=== PATIENT | male | born 1950 | race Caucasian/White ===

== ENCOUNTER 2017-05-17 09:17 | Inpatient (IN) ==
[2017-05-17 09:42] VITALS: BMI 29.9
--- NOTE | 2017-05-17 10:42 | Anesthesia Preoperative Report ---
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 Proposed Procedure: RObotic hemicolectomy NPO Since Date: 05/16/17 NPO Since Time: 23:00 Allergies/Adverse Reactions: Allergies Allergy/AdvReac Type Severity Reaction Status Date / Time bee venom protein (honey bee) Allergy Intermediate Swelling Verified 05/17/17 09 :48 Penicillins Allergy Unknown Verified 05/17/17 09:48 - Vital Signs Vital Signs: Temperature 97.9 F 05/17/17 09:30 Pulse Rate 109 H 05/17/17 09:52 Respiratory Rate 16 05/17/17 09:30 Blood Pressure 146/100 H 05/17/17 09:30 Pulse Oximetry 97 05/17/17 09:30 Height and Weight: Height 5 ft 11 in Weight 97.3 kg Body Mass Index 29.9 - Medications Inpatient Medications: Current Medications Alvimopan (Entereg) 12 mg PO O ONE Stop: 05/17/17 16:03 Last Admin: 05/17/17 10:10 Dose: 12 mg Ciprofloxacin Lactate (Cipro 400 Mg Premix) 400 mg in 200 mls @ 200 mls/hr IV PREOP HUSSAIN Stop: 05/17/17 23:00 Lactated Ringer's (Lactated Ringers) 1,000 mls @ 50 mls/hr IV .Q20H HUSSAIN Last Admin: 05/17/17 10:12 Dose: 50 mls/hr Metronidazole/Sodium Chloride (Flagyl Iv Premix) 500 mg in 100 mls @ 100 mls/ hr IV PREOP HUSSAIN Isopropyl Alcohol (Nozin Nasal Swab) 3 each MELODIE PREOP ONE Stop: 05/17/17 16:03 Last Admin: 05/17/17 10:09 Dose: 3 each Lidocaine HCl (Xylocaine-Mpf 1% Vial) 2 mg ID O ONE Stop: 05/17/17 16:12 Last Admin: 05/17/17 10:13 Dose: Not Given Home Medications: Home Medications Medication Instructions Recorded Confirmed Type Cholecalciferol (Vitamin D3) 2,000 unit PO DAILY #0 09/06/14 05/16/17 History [Vitamin D3] [place]-3/Dha/Epa/Fish Oil [Fish Oil 2,000 mg PO BID #0 09/06/14 05/16/[address] 500 mg Softgel] Simvastatin 10 mg PO HS #30 09/06/14 05/17/17 History Is Patient on Beta Michael?: No - Medical History Respiratory: DENIES: Asthma, Sleep Apnea Cardiovascular: DENIES: Angina Gastrointestional: DENIES: Gastroesophageal Reflux Disease Other History: DENIES: Anesthesia Reactions - Surgical History GI Surgery/Treatments: Reports: Appendectomy (AGE 8), Colonoscopy Musculoskeletal Surgery/Tx: Reports: Carpal Tunnel Release (RIGHT-ABOUT ) , Knee Arthroscopy (RIGHT ABOUT ) Reproductive Surgery/Treatment: Reports: Vasectomy Anesthesia Reactions: None Hx Family Anesthesia Reaction: No History of Motion Sickness: No - Social History Smoking Status: Never smoker Hx Chewing Tobacco Use: No Second Hand Exposure: No Substance Use Type: does not use Alcohol Intake: current Alcohol Intake Frequency: holidays/special occasions only - Pertinent Findings EKG: Sinus Dysrhythmia - Physical Exam Respiratory Exam: Present: lungs clear Cardiovascular Exam: Present: regular rate and rhythm - Airway Assessment Mallampati Score: II TMD: 3 Fingerbreadths Neck Extension: good Overall Assessment: no airway concerns - ASA ASA Score: 2 - Plan Anesthesia: General Inhalation Gases - Discussion Discussion: Discussed risks/options/alternatives of anesthesia and questions answered. Patient consents. Nursing pain assessment noted. Present for Discussion: spouse, family member Attestation Statement: Prior to the delivery of any anesthetic medication, I examined the patient, developed the plan, obtained the patient's consent and discussed the risk and benefits of the procedure with the patient/guardian. - Additional Information Seen by Anesthesia: Yes
[2017-05-17] MEDS ORDERED: MIDAZOLAM 2mg/2ml INJECTION ONE (10:57)
[2017-05-17] MEDS ORDERED: FentaNYL 250 MCG/5 ML INJECTION ONE (10:57)
[2017-05-17] MEDS ORDERED: ROCURONIUM 50 MG/5 ML INJECTION IVP ONE (10:59)
[2017-05-17] MEDS ORDERED: PROPOFOL 20 ML ONE (10:59)
[2017-05-17] MEDS ORDERED: INDOCYANINE GREEN 25mg INJECTION ONE (11:05)
[2017-05-17] MEDS ORDERED: LIDOCAINE 1% (10mg/ml) 30ml SDV INJ ONE (11:08)
[2017-05-17] MEDS ORDERED: LIDO 1% 30ml/BUPIV 0.25%-EPI 1:200T 30ml MIXTURE (60ml total) ID ONE (11:23)
--- NOTE | 2017-05-17 12:48 | Event Note ---
1135- Pt to OR, connected to monitors. Pt noted to be in AFib with PVC, rate of 98-120. Pt denies SOB, chest pain, cardiac related symptoms. Stat EKG ordered before proceeding with induction. Versed 2mg IV given for relaxation at 1145. EKG obtained at ~1155, reads Afib with anteroseptal HI. Jacqueline CALDERON called and consulted regarding new onset Afib and discussed risks vs benefits of proceeding with surgery. Dr Roach, Jacqueline, and myself discuss current situation and agree that the risk is higher to proceed. Surgery will be postponed and pt will have a more thorough cardiac consult. Pt returns to Phase 2 at 1220, and discussed with family the reasons for delay of surgery. Family and pt agreeable with plan for cardiac evaluation and delay of surgery.
--- NOTE | 2017-05-17 14:23 | XRay Report ---
Indication: a fib PROCEDURE: XR chest 1V: Encounter: Initial Comparison: None FINDINGS: The lungs are clear. There is no abnormal airspace opacity, pleural effusion or pneumothorax identified. The heart size, pulmonary vasculature and mediastinum are within normal limits. No significant skeletal abnormality is seen. IMPRESSION: No acute cardiopulmonary abnormality. .
--- NOTE | 2017-05-17 14:43 | Cardiology History & Physical ---
History of Present Illness Chief complaint: atrial fibrillation HPI: Jason is a 66 year old male patient of Dr. Roach with a history of HLD, Insomnia, Nephrolithiasis and Adenomatous colon polyp for which he was scheduled to undergo elective hemicolectomy today. Once in the OR suite he was found to be in Atrial fibrillation with RVR, unknown onset and was asymptomatic. Dr. Chopra was consulted for further evaluation and the procedure was cancelled. Jason is seen in Surgery care, and then again in CCU. He denies any chest pain, pressure, tightness, palpitations, skipped beats or racing heart beats. He denies dyspnea, dizziness, lightheadedness or fatigue. Review of Systems - Constitutional Constitutional: Absent: chills, fatigue, fever(s) - EENMT Eyes: Absent: change in vision Balance: Absent: vertigo Mouth/Throat: Absent: sore throat - Cardiovascular Cardiovascular: Absent: chest pain, palpitations, syncope, dyspnea on exertion Rhythm: Absent: abnormal rhythm Vascular: Absent: pedal edema - Respiratory Respiratory: Absent: cough, dyspnea, dyspnea on exertion - Gastrointestinal Gastrointestinal: Absent: abdominal pain, diarrhea, nausea, vomiting - Genitourinary Genitourinary: Absent: dysuria - Integumentary/Breasts Integumentary: Absent: rash - Neurological Neurological: Absent: dizziness - Endocrine Endocrine: Present: palpitations PFSH Patient Stated Medical History Hearing Loss Yes: bilat hearing aides Other HEENT Yes: DENT[employer]PLANT[employer] 2013 Angina No Asthma No Sleep Apnea No Gastroesophageal Reflux No Disease Hx Kidney Stones Yes: S-2008 Anesthesia Reactions No Clinic Medical History (Last Updated 05/11/17 @ 20:29 by Jos Roach MD) Adenomatous colon polyp (Acute Medical) * tubulovillous adenoma with low grade dysplasia of the hepatic flexure - biopsied 04/17/17. * tubular adenoma with low grade dysplasia x5 removed 04/17/17 Hypercholesterolemia (Chronic Medical) Insomnia (Chronic Medical) Nephrolithiasis (Chronic Medical) Surgical History: * Colonoscopy with polypectomy x5 and piecemeal biopsy of a 4 cm hepatic flexure mass - 04/17/[address] Roach in [place], [place]. Pathology revealed the hepatic flexure mass was a tubulovillous adenoma. He had 4 other tubular adenomas with low grade dysplasia and a hyperplastic polyp. * Right Carpel tunnel release - 05/25/[address] Coco Hughes at [facility] in [place], [place]. * Right Meniscus repair - 2009 Dr. Jiménez in [place], [place]. * Colonoscopy - [address] David Campo in [place], [place]. Reportedly normal. * Open Appendectomy - 1959 in [place], [place]. Family History: Family History (Last Reviewed 05/02/17 @ 15:27 by Delaney Hassan) Father , 87 - CVA CVA (cerebral vascular accident) Alzheimer's dementia Mother , 97 CVA (cerebral vascular accident) - Social History Smoking status: Never smoker Substance use type: does not use Alcohol intake frequency: holidays/special occasions only Housing: house Household members: spouse Current occupational status: retired Does patient use chewing tobacco?: No Current residence: Apartment/Private Home Medications Home Medications Medication Instructions Recorded Confirmed Type Cholecalciferol (Vitamin D3) 2,000 unit PO DAILY #0 09/06/14 05/16/17 History [Vitamin D3] [place]-3/Dha/Epa/Fish Oil [Fish Oil 2,000 mg PO BID #0 09/06/14 05/16/17 History 500 mg Softgel] Simvastatin 10 mg PO HS #30 09/06/14 05/17/17 History Allergies Allergy/AdvReac Type Severity Reaction Status Date / Time bee venom protein (honey bee) Allergy Intermediate Swelling Verified 05/17/17 09 :48 Penicillins Allergy Unknown Verified 05/17/17 09:48 Exam Vital signs: Temperature 97.8 F 05/17/17 12:20 Pulse Rate 98 05/17/17 12:45 Respiratory Rate 18 05/17/17 12:45 Blood Pressure 136/91 H 05/17/17 12:45 Pulse Oximetry 97 05/17/17 12:45 - Constitutional no acute distress, well nourished, cooperative - Routine HEENT Exam Head: Present: normocephalic ENT: Present: mucous membranes moist - Routine Neck Exam Absent: JVD, carotid bruit - Routine Chest/Breast/Axilla Exam Chest wall: Absent: tenderness - Routine Respiratory Exam Present: CTA bilaterally. Absent: rales, wheezes - Routine Cardiovascular Exam Present: no murmur, irregular rhythm - Routine Abdominal Exam Present: soft, normoactive bowel sounds - Routine Extremities Exam Present: no edema - Routine Skin Exam Present: intact, dry, warm - Routine Neurological Exam Present: alert, oriented X3 - Routine Psychiatric Exam Present: normal affect, normal thought process Results 05/19/17 05:17 05/19/17 05:17 Cardiac Enzymes 05/17/17 Range/Units 14:13 AST 21 (17-59) U/L CBC 05/17/17 Range/Units 14:13 WBC 7.5 (4.5-11.0) T/MM3 RBC 5.73 (4.50-5.90) M/MM3 Hgb 15.5 (13.5-17.5) GM/DL Hct 46.6 (41-53) % Plt Count 196 (130-400) T/MM3 Comprehensive Metabolic Panel 05/17/17 Range/Units 14:13 Sodium 142 (134-144) MEQ/L Potassium 4.3 (3.6-5) MEQ/L Chloride 106 (98-107) MEQ/L Carbon Dioxide 25 (22-30) MEQ/L BUN 14.0 (9-20) MG/DL Creatinine 0.9 (0.8-1.5) MG/DL Glucose 99 (75-110) MG/DL Calcium 9.2 (8.4-10.2) MG/DL AST 21 (17-59) U/L ALT 26 (21-72) U/L Alkaline Phosphatase 63 (38-126) U/L Total Protein 7.9 (6.3-8.2) G/DL Albumin 4.4 (3.5-5.0) G/DL Intake and Output 05/16/17 05/17/17 05/17/17 22:59 06:59 14:59 Intake Total 800 / 800 Output Total 250 / 250 Balance 550 / 550 Intake: IV 800 / 800 Ciprofloxacin Ivpb 400 mg In 200 / 200 200 ml @ 200 mls/hr IV PREOP HUSSAIN Rx#:[id number] Lr 1,000 ml @ 50 mls/hr IV . 500 / 500 Q20H HUSSAIN Rx#:[id number] MetroNIDAZOLE PB 500 mg In 100 100 / 100 ml @ 100 mls/hr IV PREOP HUSSAIN Rx #:[id number] Output: Urine 250 / 250 Other: Urine Appearance Clear Urine Color Yellow Weight 214 lb 8.156 oz Patient Weight 05/18/17 06:59 Weight 214 lb 8.156 oz - Imaging and Cardiology Echo: pending Imaging & Cardiology Narrative: Date of Exam: 05/17/17 Ordering Provider: Jacqueline Alonso APRN Type of Exam(s): XR chest 1V Reason for Exam(s): a fib Indication: a fib PROCEDURE: XR chest 1V: Encounter: Initial Comparison: None FINDINGS: The lungs are clear. There is no abnormal airspace opacity, pleural effusion or pneumothorax identified. The heart size, pulmonary vasculature and mediastinum are within normal limits. No significant skeletal abnormality is seen. IMPRESSION: No acute cardiopulmonary abnormality. 05/17/17 14:45 - EKG Interpretation EKG shows: atrial fibrillation EKG interpretations - EKG EKG shows: atrial fibrillation Hospital Course This is a general summary of the patient's hospital course. For more details refer to the complete medical record. Time spent with patient: 25 - 35 minutes Resuscitation Status: Full Code Assessment and Plan - Attestation Attestation Narrative: 05/23/17 07:50 Recommendation After examining the patient I agree with the above assessment. I am involved in the formulation of the patient's plan of care. - Assessment and Plan (1) Atrial fibrillation with RVR Status: Acute Asymptomatic, unknown onset. - 2D echocardiogram - Chest x ray - TSH and Mag, CBC, CMP, Troponin - Cardiac telemetry - EKG PRN rhythm change - Metoprolol 25mg po BID for rate control - Eliquis 5mg po BID for stroke prevention - Will plan outpatient stress test (2) Adenomatous colon polyp Status: Acute (3) Mixed hyperlipidemia Status: Chronic (4) Nephrolithiasis Status: Chronic - Assessment and Plan Asymptomatic, unknown onset. - 2D echocardiogram - Chest x ray - TSH and Mag, CBC, CMP, Troponin - Cardiac telemetry - EKG PRN rhythm change - Metoprolol 25mg po BID for rate control - Eliquis 5mg po BID for stroke prevention - Will plan outpatient stress test
[2017-05-17] MEDS: APIXABAN 5 MG TABLET PO SCH ×3 (15:12→21:14)
[2017-05-17] MEDS ORDERED: ALVIMOPAN 12 MG CAPSULE PO ONE (16:02)
[2017-05-17] MEDS ORDERED: NOZIN NASAL SWAB NAS ONE (16:02)
[2017-05-17] MEDS ORDERED: CIPROFLOXACIN IVPB 400 MG/200 ML BAG IV SCH (16:04)
[2017-05-17] MEDS ORDERED: LIDOCAINE 1% (10mg/ml) 2mL INJ PF SDV ID ONE (16:11)
[2017-05-17] MEDS ORDERED: MetroNIDAZOLE PB 500 MG/100 ML BAG IV SCH (16:15)
[2017-05-17] MEDS ORDERED: LR 1,000 ML IV SCH (16:15)
--- NOTE | 2017-05-17 17:47 | Progress Note ---
DATE OF VISIT 05/17/2017 REASON FOR VISIT Discuss clinical situation given new onset of atrial fibrillation. KEANU Gomez had been seen in preop and was doing well. He was ready for robotic right hemicolectomy. When he was transferred back to the operating room and connected to the monitors in the OR it was noted that he had some evidence of atrial fibrillation. This was confirmed with a 12-lead EKG. Anesthesia had contacted Dr. Chopra's nurse practitioner, Jacqueline Alonso. She came by to evaluate the patient and felt that the risk of proceeding with operation would be the potential for conversion to sinus rhythm during the operation with medications administered that may lead to dislodgement of an atrial clot and potential stroke. OBJECTIVE The patient was awake and alert and was in no acute distress. His cardiac has rhythmed into atrial fibrillation on his 12-lead EKG. IMPRESSION 1. New-onset atrial fibrillation. 2. Adenomatous colon polyp of the hepatic flexure that was not removed via the endoscopy. This is a low risk to him. PLAN 1. After discussion with the cardiology team and the patient I did feel that the best course of action was cancelling today's procedure because of the potential unknown risk as serious as stroke. 3. Appreciate Cardiology consult. 4. I will transfer care of the patient to Dr. Pillai since he has agreed to become the attending physician since surgery is cancelled. 20 minutes of [id number] time were spent with the patient and his family with 15 minutes being used for counseling and coordination of care. ROGELIO
[2017-05-17] MEDS: SIMVASTATIN 10 MG TABLET PO SCH (20:28)
[2017-05-17] MEDS: TRAZODONE 50 MG TABLET PO SCH (20:28)
[2017-05-17] MEDS ORDERED: NON-FORMULARY MEDICATION 1 EACH EACH (Omega-3/Dha/Epa/Fish Oil [Fish Oil Dr 500 Mg Softgel PO SCH (21:00)
[2017-05-18] MEDS ORDERED: NON-FORMULARY MEDICATION 1 EACH EACH (Cholecalciferol (Vitamin D3) [Vitamin D3] 2,000 UNIT PO SCH (09:00)
[2017-05-18] MEDS: SOTALOL 80 MG TABLET PO SCH ×2 (09:32→17:45)
[2017-05-18] MEDS: OMEGA-3 ACID ESTERS 1 GM CAPSULE PO SCH (09:33)
[2017-05-18] MEDS: APIXABAN 5 MG TABLET PO SCH ×2 (09:33→22:10)
--- NOTE | 2017-05-18 11:13 | Cardiology Progress Note ---
<Jacqueline Alonso - Last Filed: 05/18/17 16:22> Subjective Principal diagnosis: atrial fibrillation Interval history: Jason is seen in follow up for new onset atrial fibrillation. He converted to Sr this morning. He denies any chest pain, palpitations, dyspnea, dizziness, lightheadedness or fatigue. Exam Vital signs: Temperature 98.3 F 05/18/17 07:00 Pulse Rate 64 05/18/17 09:32 Respiratory Rate 18 05/18/17 07:00 Blood Pressure 102/67 05/18/17 07:00 Pulse Oximetry 97 05/18/17 07:00 - Constitutional no acute distress, well nourished, cooperative - Routine HEENT Exam Head: Present: normocephalic - Routine Neck Exam Absent: JVD, carotid bruit - Routine Chest/Breast/Axilla Exam Chest wall: Absent: tenderness - Routine Respiratory Exam Present: CTA bilaterally. Absent: rales, wheezes - Routine Cardiovascular Exam Present: RRR, no murmur - Routine Abdominal Exam Present: soft, normoactive bowel sounds - Routine Extremities Exam Present: no edema - Routine Skin Exam Present: intact, dry, warm - Routine Neurological Exam Present: alert, oriented X3 - Routine Psychiatric Exam Present: normal affect, normal thought process - Additional findings Additional findings: Apixaban (Eliquis) 5 mg PO BID [facility] Last Admin: 05/18/17 09:33 Dose: 5 mg Cholecalciferol (Vit. D-3) 2,000 unit PO DAILY [facility] Last Admin: 05/18/17 09:32 Dose: 2,000 unit Jheav-2-Kcsg Ethyl Esters (Lovaza) 2 gm PO DAILY [facility] Last Admin: 05/18/17 09:33 Dose: 2 gm Potassium Citrate (Urocit-K) 10 meq PO BIDWM [facility] Last Admin: 05/18/17 09:32 Dose: 10 meq Simvastatin (Zocor) 10 mg PO HS [facility] Last Admin: 05/17/17 20:28 Dose: 10 mg Sotalol HCl (Betapace) 40 mg PO ACBID [facility] Last Admin: 05/18/17 09:32 Dose: 40 mg Trazodone HCl (Desyrel) 50 mg PO HS [facility] Last Admin: 05/17/17 20:28 Dose: 50 mg Results 05/18/17 06:50 05/18/17 06:50 Cardiac Enzymes 05/17/17 Range/Units 14:13 AST 21 (17-59) U/L Troponin I < 0.012 (0-0.12) ng/ml CBC 05/17/17 Range/Units 14:13 WBC 7.5 (4.5-11.0) T/MM3 RBC 5.73 (4.50-5.90) M/MM3 Hgb 15.5 (13.5-17.5) GM/DL Hct 46.6 (41-53) % Plt Count 196 (130-400) T/MM3 Comprehensive Metabolic Panel 05/17/17 Range/Units 14:13 Sodium 142 (134-144) MEQ/L Potassium 4.3 (3.6-5) MEQ/L Chloride 106 (98-107) MEQ/L Carbon Dioxide 25 (22-30) MEQ/L BUN 14.0 (9-20) MG/DL Creatinine 0.9 (0.8-1.5) MG/DL Glucose 99 (75-110) MG/DL Calcium 9.2 (8.4-10.2) MG/DL AST 21 (17-59) U/L ALT 26 (21-72) U/L Alkaline Phosphatase 63 (38-126) U/L Total Protein 7.9 (6.3-8.2) G/DL Albumin 4.4 (3.5-5.0) G/DL Intake and Output 05/17/17 05/18/17 05/18/17 22:59 06:59 14:59 Intake Total 440 / 440 240 / 240 Balance 440 / 440 240 / 240 Intake: Oral 440 / 440 240 / 240 Other: Urine Odor Normal # Voids 1 1 Weight 214 lb 15.211 oz 213 lb 13.574 oz Patient Weight 05/19/17 06:59 Weight 213 lb 13.574 oz - Imaging and Cardiology Imaging & Cardiology Narrative: Date of Exam: 05/17/17 Ordering Provider: Jacqueline Alonso APRN Type of Exam(s): XR chest 1V Reason for Exam(s): a fib Indication: a fib PROCEDURE: XR chest 1V: Encounter: Initial Comparison: None FINDINGS: The lungs are clear. There is no abnormal airspace opacity, pleural effusion or pneumothorax identified. The heart size, pulmonary vasculature and mediastinum are within normal limits. No significant skeletal abnormality is seen. IMPRESSION: No acute cardiopulmonary abnormality. 05/18/17 11:12 Assessment and Plan - Assessment and Plan (1) Atrial fibrillation with RVR Status: Acute (2) Adenomatous colon polyp Status: Acute (3) Mixed hyperlipidemia Status: Chronic (4) Nephrolithiasis Status: Chronic - Assessment and Plan 05/17/17 Asymptomatic, unknown onset. - 2D echocardiogram - Chest x ray - TSH and Mag, CBC, CMP, Troponin - Cardiac telemetry - EKG PRN rhythm change - Metoprolol 25mg po BID for rate control - Eliquis 5mg po BID for stroke prevention - Will plan outpatient stress test 05/18/17 Converted to SR this am. - Change Metoprolol to Sotalol 40mg BID for antiarrhythmic therapy - Monitor cardiac telemetry. - EKG in AM - Monitor renal and electrolytes Hospital Course Summary Disclaimer: The visit summary below is not to be considered part of the above Progress Note. <Kevin Chopra - Last Filed: 05/23/17 07:55> Exam Vital signs: Temperature 98.5 F 05/19/17 12:27 Pulse Rate 57 L 05/19/17 14:23 Respiratory Rate 16 05/19/17 14:23 Blood Pressure 130/69 05/19/17 14:23 Pulse Oximetry 98 05/19/17 14:23 Results 05/19/17 05:17 05/19/17 05:17 Assessment and Plan - Assessment and Plan (1) Atrial fibrillation with RVR Status: Acute (2) Adenomatous colon polyp Status: Acute (3) Mixed hyperlipidemia Status: Chronic (4) Nephrolithiasis Status: Chronic - Attestation Attestation Narrative: 05/23/17 07:55 Recommendation After examining the patient I agree with the above assessment. I am involved in the formulation of the patient's plan of care. Hospital Course Summary Disclaimer: The visit summary below is not to be considered part of the above Progress Note.
--- NOTE | 2017-05-18 17:38 | Progress Note ---
REASON FOR VISIT Discuss surgical plan. SUBJECTIVE Jason is doing well. Jacqueline Rebolledo APRN, with Cardiology had informed me that Jason had converted to a normal sinus rhythm this morning and was being switched from metoprolol to sotalol. He has been doing well. He has no complaints today. IMPRESSION 1. New-onset atrial fibrillation - now converted to normal sinus rhythm. 2. Colon polyp at the hepatic flexure - unresectable by endoscopic techniques. PLAN 1. After discussion with Cardiology I do feel that Jason should have an outpatient stress test performed prior to proceeding back to the operating room. 2. Assuming that cardiac workup is completed and negative I think he would be ready for another attempt at right hemicolectomy on 06/07/2017. PATIENT EDUCATION I did have a 10-minute conversation with Jason and his about the clinical situation. They had some questions about the plan for cardiac workup and the time frame of surgical intervention. I did explain the situation and the tentative plan. Their questions were answered to their satisfaction. 10 minutes of [id number] time was spent with the patient with 9 minutes being used for counseling and coordination of care. ROGELIO
--- NOTE | 2017-05-18 19:31 | Echocardiogram ---
DATE OF PROCEDURE May 17, 2017. This is a two-dimensional echo with spectral Doppler, color-flow and M-mode. It was obtained in a patient with atrial fibrillation. Left atrial dimension is normal. Left ventricular end-diastolic dimension is normal. Left ventricular wall thickness is increased. LV systolic function is normal with ejection fraction of 55%. Right atrium is normal. Right ventricle is normal. Aortic root dimension is normal. Mitral valve is morphologically normal with mild mitral regurgitation. Aortic valve appears to be normal. Tricuspid valve shows mild tricuspid regurgitation with normal estimated pulmonary artery systolic pressure of 28. Pulmonary valve shows mild pulmonary insufficiency. There is no pericardial effusion. IMPRESSION 1. Normal LV systolic function with ejection fraction of 55%. 2. Concentric left ventricular hypertrophy. 3. Mild mitral regurgitation. 4. Mild tricuspid regurgitation with normal estimated pulmonary artery systolic pressure of 28. Pulmonary valve shows mild pulmonary insufficiency. MTDD
[2017-05-18] MEDS: SIMVASTATIN 10 MG TABLET PO SCH (22:10)
[2017-05-18] MEDS: TRAZODONE 50 MG TABLET PO SCH (22:10)
[2017-05-19] MEDS: SOTALOL 80 MG TABLET PO SCH ×2 (06:24→08:48)
[2017-05-19] MEDS: APIXABAN 5 MG TABLET PO SCH (08:47)
[2017-05-19] MEDS: OMEGA-3 ACID ESTERS 1 GM CAPSULE PO SCH ×2 (09:12→10:16)
[2017-05-19 12:28] VITALS: TEMP 98.5
[2017-05-19 14:24] VITALS: BP 130/69; PULSE 57; RESP 16; O2SAT 98
--- NOTE | 2017-05-19 15:22 | Discharge Summary ---
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 Roach with a history of HLD, Insomnia, Nephrolithiasis and Adenomatous colon polyp for which he was scheduled to undergo elective hemicolectomy today. Once in the OR suite he was found to be in Atrial fibrillation with RVR, unknown onset and was asymptomatic. Dr. Chopra was consulted for further evaluation and the procedure was cancelled. Jason is seen in Surgery care, and then again in CCU. He denies any chest pain, pressure, tightness, palpitations, skipped beats or racing heart beats. He denies dyspnea, dizziness, lightheadedness or fatigue. Hospital Course This is a general summary of the patient's hospital course. For more details refer to the complete medical record. Hospital course: 05/17/17 Asymptomatic, unknown onset. - 2D echocardiogram - Chest x ray - TSH and Mag, CBC, CMP, Troponin - Cardiac telemetry - EKG PRN rhythm change - Metoprolol 25mg po BID for rate control - Eliquis 5mg po BID for stroke prevention - Will plan outpatient stress test 05/18/17 Converted to SR this am. - Change Metoprolol to Sotalol 40mg BID for antiarrhythmic therapy - Monitor cardiac telemetry. - EKG in AM - Monitor renal and electrolytes Time spent with patient: 25 - 35 minutes Resuscitation Status: Full Code Exam Vital signs: Temperature 98.5 F 05/19/17 12:27 Pulse Rate 57 L 05/19/17 14:23 Respiratory Rate 16 05/19/17 14:23 Blood Pressure 130/69 05/19/17 14:23 Pulse Oximetry 98 05/19/17 14:23 - Constitutional no acute distress, well nourished, cooperative - Routine HEENT Exam Head: Present: normocephalic ENT: Present: mucous membranes moist - Routine Neck Exam Absent: JVD, carotid bruit - Routine Chest/Breast/Axilla Exam Chest wall: Absent: tenderness - Routine Respiratory Exam Present: CTA bilaterally. Absent: rales, wheezes - Routine Cardiovascular Exam Present: RRR, no murmur - Routine Abdominal Exam Present: soft, normoactive bowel sounds - Routine Extremities Exam Present: no edema - Routine Skin Exam Present: intact, dry, warm - Routine Neurological Exam Present: alert, oriented X3 - Routine Psychiatric Exam Present: normal affect, normal thought process Results 05/19/17 05:17 05/19/17 05:17 CBC 05/19/17 Range/Units 05:17 WBC 6.9 (4.5-11.0) T/MM3 RBC 5.24 (4.50-5.90) M/MM3 Hgb 14.6 (13.5-17.5) GM/DL Hct 43.0 (41-53) % Plt Count 182 (130-400) T/MM3 Comprehensive Metabolic Panel 05/19/17 Range/Units 05:17 Sodium 141 (134-144) MEQ/L Potassium 4.2 (3.6-5) MEQ/L Chloride 107 (98-107) MEQ/L Carbon Dioxide 26 (22-30) MEQ/L BUN 25.0 H (9-20) MG/DL Creatinine 1.0 (0.8-1.5) MG/DL Glucose 94 (75-110) MG/DL Calcium 9.1 (8.4-10.2) MG/DL Intake and Output 05/19/17 05/19/17 05/19/17 06:59 14:59 22:59 Intake Total 100 / 100 840 / 840 Balance 100 / 100 840 / 840 Intake: Oral 100 / 100 840 / 840 Other: # Voids 3 Weight 213 lb 6.519 oz Patient Weight 05/20/17 06:59 Weight 213 lb 6.519 oz - Imaging and Cardiology Echo: report reviewed EKG results: image reviewed Imaging & Cardiology Narrative: Date of Exam: 05/17/17 Type of Exam(s): US echo doppler complete DATE OF PROCEDURE May 17, 2017. This is a two-dimensional echo with spectral Doppler, color-flow and M-mode. It was obtained in a patient with atrial fibrillation. Left atrial dimension is normal. Left ventricular end-diastolic dimension is normal. Left ventricular wall thickness is increased. LV systolic function is normal with ejection fraction of 55%. Right atrium is normal. Right ventricle is normal. Aortic root dimension is normal. Mitral valve is morphologically normal with mild mitral regurgitation. Aortic valve appears to be normal. Tricuspid valve shows mild tricuspid regurgitation with normal estimated pulmonary artery systolic pressure of 28. Pulmonary valve shows mild pulmonary insufficiency. There is no pericardial effusion. IMPRESSION 1. Normal LV systolic function with ejection fraction of 55%. 2. Concentric left ventricular hypertrophy. 3. Mild mitral regurgitation. 4. Mild tricuspid regurgitation with normal estimated pulmonary artery systolic pressure of 28. Pulmonary valve shows mild pulmonary insufficiency. 05/19/17 15:19 Discharge Plan - Med Rec/Dispo Referrals/Follow Up: Kevin Chopra MD [Physician] - 05/31/17 9:10 am [facility] Instructions: A-fib (Atrial Fibrillation) (DC) Prescriptions: New Sotalol [Betapace] 40 mg PO ACBID #60 tab Apixaban [Eliquis] 5 mg PO BID #60 tab Continue Simvastatin 10 mg PO HS #30 Cholecalciferol (Vitamin D3) [Vitamin D3] 2,000 unit PO DAILY #0 Eldred-3/Dha/Epa/Fish Oil [Fish Oil Dr 500 mg Softgel] 2,000 mg PO BID #0 potassium citrate ER 10 mEq (1,080 mg) tablet,extended release 10 meq PO BID #60 tab trazodone 50 mg tablet 50 mg PO HS #30 tab - Disposition 01 Discharged Home, Self-Care - Dismissal Complete Discharge Instructions are:: Complete <Kevin Chopra - Last Filed: 05/23/17 08:14> Discharge Information Date of admission: 05/18/17 11:12 Attending Physician: Kevin Chopra MD Primary care physician: David Campo MD Consults: 05/17/17 12:37 Physician Consult [CONS] Routine Consulting Provider: Kevin Chopra Reason For Exam: New onset a-fib Ordering Provider has Notified 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 For more details refer to the complete medical record. Exam Vital signs: Temperature 98.5 F 05/19/17 12:27 Pulse Rate 57 L 05/19/17 14:23 Respiratory Rate 16 05/19/17 14:23 Blood Pressure 130/69 05/19/17 14:23 Pulse Oximetry 98 05/19/17 14:23 Results 05/19/17 05:17 05/19/17 05:17 Attestation Narriative - Attestation Attestation Narrative: 05/23/17 08:14 Recommendation After examining the patient I agree with the above assessment. I am involved in the formulation of the patient's plan of care.
== END 2017-05-19 15:55 | disposition home or self-care (01) | DRG 310 ==
LOC: NMC.PERIOP 09:17 → INTOOBSV 09:17 → CCU 13:00 → MED 17:24
PROVIDERS: ADMIT Internal Medicine Cardiovascular Disease; ATTEND Internal Medicine Cardiovascular Disease